=== PATIENT | male | born 1965 | race Caucasian/White ===

== ENCOUNTER 2020-11-20 08:52 | Inpatient (IN) | payer MEDICAID ==
[~2020-11-20] VITALS: Ht 167.6 cm; Wt 74.8 kg
[2020-11-20] MEDS ORDERED: ACETAMINOPHEN 325MG TABLET PO ONE (09:15)
[2020-11-20] MEDS ORDERED: AZITHROMYCIN 500MG/250ML 250 ML IV ONE (10:45)
[2020-11-20] MEDS ORDERED: CEFTRIAXONE 1 G PREMIX 50 ML IV ONE (10:45)
[2020-11-20 11:19] LABS: BASOPHILS % 0.4 % (0.0-2.0); HEMATOCRIT. 41.3 % (42.0-52.0); HEMOGLOBIN. 14.7 g/dL (14.0-18.0); LYMPHOCYTES % 8.2 % (20.0-50.0); MEAN CORPUSCULAR HEMOGLOBIN 30.5 pg (28.0-32.0); MEAN CORPUSCULAR VOLUME 85.9 fL (80.0-94.0); MEAN PLATELET VOLUME 8.5 fl (7.4-10.4); MONOCYTES % 5.7 % (2.0-8.0); NEUTROPHILS % 85.7 % (40.0-76.0); PLATELET 157 x1000/uL (130-400); RED BLOOD CELL COUNT 4.81 mill/uL (4.7-6.1); RED CELL DISTRIBUTION WIDTH 13.1 % (11.6-14.6)
[2020-11-20 11:22] LABS: CHLORIDE 96 mEq/L (98-107)
[2020-11-20 11:26] LABS: PROTHROMBIN TIME 11.1 sec (9.6-11.0)
[2020-11-20 12:28] LABS: CLARITY URINE CLEAR (CLEAR); COLOR URINE YELLOW (YELLOW); KETONES URINE 1+ (NEGATIVE); LEUKOCYTE ESTERASE URINE NEGATIVE (NEGATIVE); NITRITE URINE NEGATIVE (NEGATIVE); OCCULT BLOOD URINE NEGATIVE (NEGATIVE); PROTEIN URINE TRACE (NEGATIVE); SPECIFIC GRAVITY URINE 1.005 (1.005-1.030); UROBILINOGEN URINE 0.2 E.U./dL (0.2-1.0)
[2020-11-20] MEDS ORDERED: DEXAMETHASONE 10 MG/ML VIAL IV ONE (13:30)
[2020-11-20] MEDS ORDERED: AZIT250T12 PO (15:33)
[2020-11-20] MEDS ORDERED: PRED10TA MT (15:33)
[2020-11-20] MEDS ORDERED: AMOX-494 MT (15:33)
[2020-11-20] MEDS ORDERED: FEXO-61 MT (15:33)
[2020-11-20 16:00] VITALS: BP 96/49
[2020-11-20 16:22] VITALS: BP 96/49
[2020-11-20] MEDS ORDERED: LORAZEPAM 0.5MG TABLET PO PRN (17:00)
[2020-11-20] MEDS ORDERED: CLONIDINE 0.1MG TABLET PO PRN (17:00)
[2020-11-20] MEDS ORDERED: HYDROCODONE/ACETAMINOPHEN 5/325MG TABLET PO PRN (17:00)
[2020-11-20] MEDS ORDERED: ACETAMINOPHEN 325MG TABLET PO PRN ×2 (17:00)
[2020-11-20] MEDS ORDERED: ONDANSETRON HCL 4MG/2ML INJ IV PRN (17:00)
[2020-11-20] MEDS: ENOXAPARIN 40MG/0.4ML SYR SUBCUT SCH (18:25)
[2020-11-20 20:00] VITALS: BP 129/80
[2020-11-20] MEDS ORDERED: NALOXONE HCL 0.4MG/ML VIAL IV PRN (23:00)
[2020-11-21 00:05] VITALS: BP 125/69
[2020-11-21 04:00] VITALS: BP 131/85
[2020-11-21 07:36] LABS: CHLORIDE 98 mEq/L (98-107)
[2020-11-21 07:50] LABS: BASOPHILS % 0.1 % (0.0-2.0); HEMATOCRIT. 40.9 % (42.0-52.0); HEMOGLOBIN. 14.6 g/dL (14.0-18.0); MEAN CORPUSCULAR HEMOGLOBIN 30.8 pg (28.0-32.0); MEAN CORPUSCULAR VOLUME 86.4 fL (80.0-94.0); MEAN PLATELET VOLUME 9.2 fl (7.4-10.4); MONOCYTES % 9.1 % (2.0-8.0); NEUTROPHILS % 79.8 % (40.0-76.0); PLATELET 203 x1000/uL (130-400); RED BLOOD CELL COUNT 4.73 mill/uL (4.7-6.1); RED CELL DISTRIBUTION WIDTH 12.9 % (11.6-14.6)
[2020-11-21 08:00] VITALS: BP 115/77
[2020-11-21] MEDS ORDERED: AZITHROMYCIN 500 MG in DEXT 5% WATER 250 ML IV SCH (09:00)
[2020-11-21] MEDS: CEFTRIAXONE 1,000 MG in DEXTROSE 5% WATER 50 ML IV SCH (09:38)
[2020-11-21] MEDS: AZITHROMYCIN 500 MG in DEXT 5% WATER 250 ML IV SCH (09:38)
[2020-11-21] MEDS ORDERED: CEFTRIAXONE 1,000 MG in DEXTROSE 5% WATER 50 ML IV SCH (10:00)
[2020-11-21 12:00] VITALS: BP 114/72
[2020-11-21 16:00] VITALS: BP 118/77
[2020-11-21] MEDS: ENOXAPARIN 40MG/0.4ML SYR SUBCUT SCH (18:18)
[2020-11-21 20:00] VITALS: BP 115/75
[2020-11-22] VITALS: BP 120/80
[2020-11-22 04:00] VITALS: BP 120/70
[2020-11-22 08:00] VITALS: BP 121/82
[2020-11-22] MEDS: AZITHROMYCIN 500 MG in DEXT 5% WATER 250 ML IV SCH (08:50)
[2020-11-22] MEDS: CEFTRIAXONE 1,000 MG in DEXTROSE 5% WATER 50 ML IV SCH (10:00)
[2020-11-22 12:00] VITALS: BP 115/78
[2020-11-22 16:00] VITALS: BP 118/74
[2020-11-22] MEDS: ENOXAPARIN 40MG/0.4ML SYR SUBCUT SCH (16:58)
[2020-11-22 20:00] VITALS: BP 117/74
[2020-11-23 00:05] VITALS: BP 121/68
[2020-11-23 04:00] VITALS: BP 129/81
[2020-11-23 07:41] VITALS: BP 120/81
[2020-11-23] MEDS: AZITHROMYCIN 500 MG in DEXT 5% WATER 250 ML IV SCH (08:08)
[2020-11-23] MEDS: CEFTRIAXONE 1,000 MG in DEXTROSE 5% WATER 50 ML IV SCH (09:26)
[2020-11-23 11:24] VITALS: BP 129/81
[2020-11-23 12:00] VITALS: BP 129/81
[2020-11-23] MEDS ORDERED: AZIT250T12 PO (12:26)
[2020-11-24] MEDS ORDERED: AZITHROMYCIN 500 MG TABLET PO SCH (09:00)
== END 2020-11-23 17:12 | disposition home or self-care (01) | DRG 137 ==
LOC: ER 08:52 → 7WST 12:12 → EDBEDREQSVC 12:16 → EDBEDREQ 12:16 → ENRESERV 14:35 → CANBEDREQ 16:37
PROVIDERS: ADMIT Internal Medicine; ATTEND Internal Medicine
DX: U07.1 COVID-19 (principal); J96.00 Acute respiratory failure, unspecified whether with hypoxia or hypercapnia; J12.81 Pneumonia due to SARS-associated coronavirus; E87.1 Hypo-osmolality and hyponatremia; R74.01 Elevation of levels of liver transaminase levels
CPT/HCPCS: 36415; 71045; 80053; 81003; 83605; 84145; 84484; 85025; 87426; 93005; 99285; J0456; J0696; J1100; J1650; J7040; J7060